=== PATIENT | female | born 1950 | race Caucasian/White ===

== ENCOUNTER 2020-07-17 14:45 | Inpatient (IN) ==
[2020-07-17] MEDS ORDERED: *HR* HYDROcodone/Acet 5/325 mg TABLET PO PRN (16:15)
[2020-07-17] MEDS ORDERED: polyethylene glycoL 3350 17 GM POWD.PACK PO PRN (16:15)
[2020-07-17] MEDS ORDERED: *HR* HYDROcodone/Acet 10/325 mg TABLET PO PRN (16:18)
[2020-07-17] MEDS: carvediloL 25 MG TABLET PO SCH (17:42)
[2020-07-17] MEDS: Insulin LISPRO 300 UNITS/3 ML VIAL SUBQ SCH (17:42)
[2020-07-17] MEDS: hydrALAZINE 25 MG TABLET PO SCH (17:42)
[2020-07-17] MEDS: Pregabalin 75 MG CAPSULE PO SCH (21:18)
[2020-07-17] MEDS: Insulin DETEMIR 100 UNIT/ML per UNIT SUBQ SCH (21:19)
[2020-07-17] MEDS: Meropenem 1,000 MG in 0.9 % Sodium Chloride Mini Bag 100 ML IVPB SCH (21:22)
[2020-07-18] MEDS: hydrALAZINE 25 MG TABLET PO SCH ×3 (00:07→17:08)
[2020-07-18 04:38] LABS: Basophils % 0.6 %; Eosinophils # 0.6 K/mcL (0.0-0.6); Eosinophils % 7.8 %; Hematocrit 26.2 % (35.3-44.9); Hemoglobin 8.3 g/dL (11.5-15.4); Immature Granulocytes % 0.4 % (0-4); Lymphocytes % 28.7 %; Mean Corpuscular HGB Conc 31.7 g/dL (31.6-35.5); Mean Corpuscular Hemoglobin 27.2 pg (28.0-33.3); Mean Corpuscular Volume 85.9 fL (83.0-100.0); Mean Platelet Volume 9.4 fL (9.4-12.4); Monocytes # 0.6 K/mcL (0.0-1.3); Neutrophils # 3.8 K/mcL (1.6-8.9); Platelet Count 256 K/mcL (140-400); Red Blood Count 3.05 M/mcL (3.82-4.97); Red Cell Distribution Width 16.2 % (11.5-14.5); Segmented Neutrophils % 53.5 %
[2020-07-18 04:58] LABS: Calcium 8.4 mg/dL (8.6-10.3); Potassium 3.7 mEq/L (3.5-5.1)
[2020-07-18] MEDS: amLODIPine 5 MG TABLET PO SCH (08:12)
[2020-07-18] MEDS: carvediloL 25 MG TABLET PO SCH ×2 (08:12→17:07)
[2020-07-18] MEDS: Isosorbide MONOnitrate (24 HR) 60 MG TAB.ER.24H PO SCH (08:12)
[2020-07-18] MEDS: Aspirin Enteric Coated 81 MG Tablet PO SCH (08:12)
[2020-07-18] MEDS: Cholecalciferol (D-3) 1,000 UNIT (25MCG) TABLET PO SCH (08:12)
[2020-07-18] MEDS: cloNIDine HCL 0.1 MG TABLET PO SCH (08:13)
[2020-07-18] MEDS: Insulin LISPRO 300 UNITS/3 ML VIAL SUBQ SCH ×3 (08:13→16:57)
[2020-07-18] MEDS: Meropenem 1,000 MG in 0.9 % Sodium Chloride Mini Bag 100 ML IVPB SCH ×2 (08:14→19:59)
[2020-07-18] MEDS: Furosemide 40 MG TABLET PO SCH (08:14)
[2020-07-18] MEDS: Insulin DETEMIR 100 UNIT/ML per UNIT SUBQ SCH (08:14)
[2020-07-18] MEDS ORDERED: DAPTOmycin 500 MG VIAL IVPB SCH (17:00)
[2020-07-18] MEDS ORDERED: DAPTOmycin 500 MG in 0.9 % Sodium Chloride 100 ML IVPB SCH (19:00)
[2020-07-18] MEDS: Pregabalin 75 MG CAPSULE PO SCH (19:58)
[2020-07-18] MEDS: Insulin DETEMIR 100 UNIT/ML X5UNITS SUBQ SCH (19:58)
[2020-07-19] MEDS: hydrALAZINE 25 MG TABLET PO SCH ×3 (00:27→16:28)
[2020-07-19 05:01] LABS: Hemoglobin 8.2 g/dL (11.5-15.4); Mean Corpuscular HGB Conc 31.5 g/dL (31.6-35.5); Mean Corpuscular Hemoglobin 27.2 pg (28.0-33.3); Mean Corpuscular Volume 86.1 fL (83.0-100.0); Mean Platelet Volume 9.4 fL (9.4-12.4); Platelet Count 254 K/mcL (140-400); Red Blood Count 3.02 M/mcL (3.82-4.97); Red Cell Distribution Width 16.4 % (11.5-14.5); White Blood Count 7.1 K/mcL (4.3-11.1)
[2020-07-19 05:17] LABS: Alanine Aminotransferase 7 Units/L (7-52); Albumin 3.2 g/dL (3.5-5.7); Albumin/Globulin Ratio 1.3 (1.1-2.2); Alkaline Phosphatase 29 Units/L (34-104); Aspartate Amino Transferase 9 Units/L (13-39); BUN/Creatinine Ratio 14 (6-26); Bilirubin,Total 0.4 mg/dL (0.3-1.0); Blood Urea Nitrogen 30 mg/dL (8-23); Calcium 8.5 mg/dL (8.6-10.3); Carbon Dioxide 29 mEq/L (23-29); Chloride 103 mEq/L (98-107); Creatine Kinase 19 Units/L (30-223); Globulin 2.5 g/dL (2.4-3.5); Glucose 148 mg/dL (70-105); Magnesium 2.3 mg/dL (1.6-2.6); Osmolality,Calculated 297 (280-300); Potassium 3.7 mEq/L (3.5-5.1); Sodium 139 mEq/L (136-145); Total Protein 5.7 g/dL (6.4-8.9); eGFR For African Americans 27 (> 60); eGFR For Non-African Americans 22 (> 60)
[2020-07-19] MEDS ORDERED: *HR* Enoxaparin 30 MG/0.3 ML SYRINGE SQ SCH (06:00)
[2020-07-19] MEDS: Cholecalciferol (D-3) 1,000 UNIT (25MCG) TABLET PO SCH (08:10)
[2020-07-19] MEDS: amLODIPine 5 MG TABLET PO SCH (08:10)
[2020-07-19] MEDS: cloNIDine HCL 0.1 MG TABLET PO SCH (08:10)
[2020-07-19] MEDS: Insulin DETEMIR 100 UNIT/ML X5UNITS SUBQ SCH ×2 (08:11→20:35)
[2020-07-19] MEDS: Insulin LISPRO 300 UNITS/3 ML VIAL SUBQ SCH ×3 (08:11→16:28)
[2020-07-19] MEDS: Isosorbide MONOnitrate (24 HR) 60 MG TAB.ER.24H PO SCH (08:11)
[2020-07-19] MEDS: Furosemide 40 MG TABLET PO SCH (08:11)
[2020-07-19] MEDS: carvediloL 25 MG TABLET PO SCH ×2 (08:12→16:28)
[2020-07-19] MEDS: Meropenem 1,000 MG in 0.9 % Sodium Chloride Mini Bag 100 ML IVPB SCH ×2 (08:12→20:32)
[2020-07-19] MEDS: Aspirin Enteric Coated 81 MG Tablet PO SCH (08:12)
[2020-07-19 08:47] LABS: C-Reactive Protein < 5 mg/L (Less than 10)
[2020-07-19] MEDS: DAPTOmycin 500 MG in 0.9 % Sodium Chloride 100 ML IVPB SCH (19:35)
[2020-07-19] MEDS: Pregabalin 75 MG CAPSULE PO SCH (20:32)
[2020-07-20] MEDS: hydrALAZINE 25 MG TABLET PO SCH ×4 (00:15→23:58)
[2020-07-20] MEDS: *HR* Enoxaparin 40 MG/0.4 ML SYRINGE SQ SCH (05:25)
[2020-07-20] MEDS: Insulin DETEMIR 100 UNIT/ML X5UNITS SUBQ SCH ×2 (08:19→20:58)
[2020-07-20] MEDS: Insulin LISPRO 300 UNITS/3 ML VIAL SUBQ SCH ×3 (08:19→16:33)
[2020-07-20] MEDS: Cholecalciferol (D-3) 1,000 UNIT (25MCG) TABLET PO SCH (08:20)
[2020-07-20] MEDS: Furosemide 40 MG TABLET PO SCH (08:20)
[2020-07-20] MEDS: cloNIDine HCL 0.1 MG TABLET PO SCH (08:21)
[2020-07-20] MEDS: amLODIPine 5 MG TABLET PO SCH (08:21)
[2020-07-20] MEDS: Aspirin Enteric Coated 81 MG Tablet PO SCH (08:21)
[2020-07-20] MEDS: Isosorbide MONOnitrate (24 HR) 60 MG TAB.ER.24H PO SCH (08:21)
[2020-07-20] MEDS: carvediloL 25 MG TABLET PO SCH ×2 (08:21→16:32)
[2020-07-20] MEDS: Meropenem 1,000 MG in 0.9 % Sodium Chloride Mini Bag 100 ML IVPB SCH ×2 (08:30→20:22)
[2020-07-20] MEDS ORDERED: Bisacodyl 10 MG RECTAL SUPPOSITORY RC ONE (10:32)
[2020-07-20] MEDS: DAPTOmycin 500 MG in 0.9 % Sodium Chloride 100 ML IVPB SCH (19:30)
[2020-07-20] MEDS: Pregabalin 75 MG CAPSULE PO SCH (20:58)
[2020-07-21] MEDS: *HR* Enoxaparin 40 MG/0.4 ML SYRINGE SQ SCH (05:01)
[2020-07-21] MEDS: Meropenem 1,000 MG in 0.9 % Sodium Chloride Mini Bag 100 ML IVPB SCH ×2 (08:07→18:49)
[2020-07-21] MEDS: Insulin LISPRO 300 UNITS/3 ML VIAL SUBQ SCH ×3 (08:07→17:28)
[2020-07-21] MEDS: cloNIDine HCL 0.1 MG TABLET PO SCH (08:08)
[2020-07-21] MEDS: Aspirin Enteric Coated 81 MG Tablet PO SCH (08:08)
[2020-07-21] MEDS: carvediloL 25 MG TABLET PO SCH ×2 (08:08→17:28)
[2020-07-21] MEDS: Isosorbide MONOnitrate (24 HR) 60 MG TAB.ER.24H PO SCH (08:08)
[2020-07-21] MEDS: amLODIPine 5 MG TABLET PO SCH (08:09)
[2020-07-21] MEDS: Cholecalciferol (D-3) 1,000 UNIT (25MCG) TABLET PO SCH (08:09)
[2020-07-21] MEDS: hydrALAZINE 25 MG TABLET PO SCH ×3 (08:09→23:34)
[2020-07-21] MEDS: Furosemide 40 MG TABLET PO SCH (08:09)
[2020-07-21] MEDS: Insulin DETEMIR 100 UNIT/ML X5UNITS SUBQ SCH ×2 (08:55→23:29)
[2020-07-21] MEDS: DAPTOmycin 500 MG in 0.9 % Sodium Chloride 100 ML IVPB SCH (19:12)
[2020-07-21] MEDS: Pregabalin 75 MG CAPSULE PO SCH (23:33)
[2020-07-22] MEDS: *HR* Enoxaparin 40 MG/0.4 ML SYRINGE SQ SCH (06:16)
[2020-07-22 06:49] LABS: Basophils % 0.7 %; Eosinophils # 0.7 K/mcL (0.0-0.6); Eosinophils % 11.2 %; Hematocrit 26.5 % (35.3-44.9); Hemoglobin 8.5 g/dL (11.5-15.4); Immature Granulocytes % 0.3 % (0-4); Lymphocytes # 1.4 K/mcL (0.6-4.6); Lymphocytes % 24.1 %; Mean Corpuscular HGB Conc 32.1 g/dL (31.6-35.5); Mean Corpuscular Hemoglobin 27.3 pg (28.0-33.3); Mean Corpuscular Volume 85.2 fL (83.0-100.0); Mean Platelet Volume 9.2 fL (9.4-12.4); Monocytes # 0.7 K/mcL (0.0-1.3); Monocytes % 11.4 %; Neutrophils # 3.1 K/mcL (1.6-8.9); Platelet Count 251 K/mcL (140-400); Red Blood Count 3.11 M/mcL (3.82-4.97); Red Cell Distribution Width 16.8 % (11.5-14.5); Segmented Neutrophils % 52.3 %; White Blood Count 5.9 K/mcL (4.3-11.1)
[2020-07-22 07:01] LABS: Calcium 8.6 mg/dL (8.6-10.3)
[2020-07-22] MEDS: Insulin LISPRO 300 UNITS/3 ML VIAL SUBQ SCH ×3 (08:34→17:14)
[2020-07-22] MEDS: Meropenem 1,000 MG in 0.9 % Sodium Chloride Mini Bag 100 ML IVPB SCH ×2 (08:34→21:06)
[2020-07-22] MEDS: Cholecalciferol (D-3) 1,000 UNIT (25MCG) TABLET PO SCH (08:35)
[2020-07-22] MEDS: cloNIDine HCL 0.1 MG TABLET PO SCH (08:35)
[2020-07-22] MEDS: amLODIPine 5 MG TABLET PO SCH (08:35)
[2020-07-22] MEDS: Aspirin Enteric Coated 81 MG Tablet PO SCH (08:35)
[2020-07-22] MEDS: carvediloL 25 MG TABLET PO SCH ×2 (08:35→17:07)
[2020-07-22] MEDS: Isosorbide MONOnitrate (24 HR) 60 MG TAB.ER.24H PO SCH (08:36)
[2020-07-22] MEDS: Furosemide 40 MG TABLET PO SCH (08:36)
[2020-07-22] MEDS: hydrALAZINE 25 MG TABLET PO SCH ×2 (08:36→17:07)
[2020-07-22] MEDS: Insulin DETEMIR 100 UNIT/ML X5UNITS SUBQ SCH ×2 (08:38→20:57)
[2020-07-22] MEDS: DAPTOmycin 500 MG in 0.9 % Sodium Chloride 100 ML IVPB SCH (20:25)
[2020-07-22] MEDS: Pregabalin 75 MG CAPSULE PO SCH (20:56)
[2020-07-23] MEDS: hydrALAZINE 25 MG TABLET PO SCH ×4 (00:05→23:16)
[2020-07-23] MEDS: *HR* Enoxaparin 40 MG/0.4 ML SYRINGE SQ SCH (05:12)
[2020-07-23] MEDS: Insulin LISPRO 300 UNITS/3 ML VIAL SUBQ SCH ×3 (08:56→17:03)
[2020-07-23] MEDS: Insulin DETEMIR 100 UNIT/ML X5UNITS SUBQ SCH ×2 (08:56→20:11)
[2020-07-23] MEDS: Furosemide 40 MG TABLET PO SCH (09:10)
[2020-07-23] MEDS: amLODIPine 5 MG TABLET PO SCH (09:10)
[2020-07-23] MEDS: cloNIDine HCL 0.1 MG TABLET PO SCH (09:10)
[2020-07-23] MEDS: Cholecalciferol (D-3) 1,000 UNIT (25MCG) TABLET PO SCH (09:11)
[2020-07-23] MEDS: carvediloL 25 MG TABLET PO SCH ×2 (09:11→17:03)
[2020-07-23] MEDS: Aspirin Enteric Coated 81 MG Tablet PO SCH (09:11)
[2020-07-23] MEDS: Meropenem 1,000 MG in 0.9 % Sodium Chloride Mini Bag 100 ML IVPB SCH ×2 (09:11→20:01)
[2020-07-23] MEDS: Isosorbide MONOnitrate (24 HR) 60 MG TAB.ER.24H PO SCH (09:11)
[2020-07-23] MEDS: DAPTOmycin 500 MG in 0.9 % Sodium Chloride 100 ML IVPB SCH (18:41)
[2020-07-23] MEDS: Pregabalin 75 MG CAPSULE PO SCH (20:00)
[2020-07-24] MEDS: *HR* Enoxaparin 40 MG/0.4 ML SYRINGE SQ SCH (05:27)
[2020-07-24] MEDS: Insulin LISPRO 300 UNITS/3 ML VIAL SUBQ SCH ×3 (08:18→16:37)
[2020-07-24] MEDS: Insulin DETEMIR 100 UNIT/ML X5UNITS SUBQ SCH ×2 (08:56→20:35)
[2020-07-24] MEDS: Meropenem 1,000 MG in 0.9 % Sodium Chloride Mini Bag 100 ML IVPB SCH ×2 (08:56→20:31)
[2020-07-24] MEDS: Furosemide 40 MG TABLET PO SCH (09:05)
[2020-07-24] MEDS: hydrALAZINE 25 MG TABLET PO SCH ×2 (09:05→16:36)
[2020-07-24] MEDS: carvediloL 25 MG TABLET PO SCH ×2 (09:05→16:36)
[2020-07-24] MEDS: cloNIDine HCL 0.1 MG TABLET PO SCH (09:05)
[2020-07-24] MEDS: Cholecalciferol (D-3) 1,000 UNIT (25MCG) TABLET PO SCH (09:05)
[2020-07-24] MEDS: Aspirin Enteric Coated 81 MG Tablet PO SCH (09:05)
[2020-07-24] MEDS: Isosorbide MONOnitrate (24 HR) 60 MG TAB.ER.24H PO SCH (09:06)
[2020-07-24] MEDS: amLODIPine 5 MG TABLET PO SCH (09:06)
[2020-07-24] MEDS: DAPTOmycin 500 MG in 0.9 % Sodium Chloride 100 ML IVPB SCH (20:30)
[2020-07-24] MEDS: Pregabalin 75 MG CAPSULE PO SCH (20:31)
[2020-07-25] MEDS: hydrALAZINE 25 MG TABLET PO SCH ×3 (00:52→17:23)
[2020-07-25] MEDS: *HR* Enoxaparin 40 MG/0.4 ML SYRINGE SQ SCH (06:24)
[2020-07-25] MEDS: Insulin LISPRO 300 UNITS/3 ML VIAL SUBQ SCH ×3 (09:23→17:24)
[2020-07-25] MEDS: Insulin DETEMIR 100 UNIT/ML X5UNITS SUBQ SCH ×2 (09:35→20:41)
[2020-07-25] MEDS: Meropenem 1,000 MG in 0.9 % Sodium Chloride Mini Bag 100 ML IVPB SCH ×2 (09:36→20:44)
[2020-07-25] MEDS: amLODIPine 5 MG TABLET PO SCH (09:37)
[2020-07-25] MEDS: Furosemide 40 MG TABLET PO SCH (09:37)
[2020-07-25] MEDS: Isosorbide MONOnitrate (24 HR) 60 MG TAB.ER.24H PO SCH (09:37)
[2020-07-25] MEDS: Cholecalciferol (D-3) 1,000 UNIT (25MCG) TABLET PO SCH (09:37)
[2020-07-25] MEDS: Aspirin Enteric Coated 81 MG Tablet PO SCH (09:37)
[2020-07-25] MEDS: cloNIDine HCL 0.1 MG TABLET PO SCH (09:37)
[2020-07-25] MEDS: carvediloL 25 MG TABLET PO SCH ×2 (09:37→17:23)
[2020-07-25] MEDS: DAPTOmycin 500 MG in 0.9 % Sodium Chloride 100 ML IVPB SCH (20:43)
[2020-07-25] MEDS: Pregabalin 75 MG CAPSULE PO SCH (20:45)
[2020-07-26] MEDS: hydrALAZINE 25 MG TABLET PO SCH ×3 (00:02→16:45)
[2020-07-26 05:48] LABS: Basophils # 0.1 K/mcL (0.0-0.2); Basophils % 1.3 %; Eosinophils # 0.6 K/mcL (0.0-0.6); Eosinophils % 9.6 %; Hematocrit 28.3 % (35.3-44.9); Hemoglobin 9.1 g/dL (11.5-15.4); Immature Granulocytes % 0.3 % (0-4); Lymphocytes # 1.9 K/mcL (0.6-4.6); Lymphocytes % 30.5 %; Mean Corpuscular HGB Conc 32.2 g/dL (31.6-35.5); Mean Corpuscular Hemoglobin 27.4 pg (28.0-33.3); Mean Corpuscular Volume 85.2 fL (83.0-100.0); Mean Platelet Volume 8.9 fL (9.4-12.4); Monocytes # 0.5 K/mcL (0.0-1.3); Monocytes % 8.2 %; Neutrophils # 3.1 K/mcL (1.6-8.9); Platelet Count 274 K/mcL (140-400); Red Blood Count 3.32 M/mcL (3.82-4.97); Red Cell Distribution Width 16.5 % (11.5-14.5); Segmented Neutrophils % 50.1 %; White Blood Count 6.2 K/mcL (4.3-11.1)
[2020-07-26 06:02] LABS: Calcium 8.8 mg/dL (8.6-10.3)
[2020-07-26] MEDS: *HR* Enoxaparin 40 MG/0.4 ML SYRINGE SQ SCH (06:24)
[2020-07-26] MEDS: Insulin LISPRO 300 UNITS/3 ML VIAL SUBQ SCH ×3 (08:18→16:45)
[2020-07-26] MEDS: Furosemide 40 MG TABLET PO SCH (08:35)
[2020-07-26] MEDS: Aspirin Enteric Coated 81 MG Tablet PO SCH (08:35)
[2020-07-26] MEDS: cloNIDine HCL 0.1 MG TABLET PO SCH (08:35)
[2020-07-26] MEDS: Insulin DETEMIR 100 UNIT/ML X5UNITS SUBQ SCH ×2 (08:35→20:20)
[2020-07-26] MEDS: Isosorbide MONOnitrate (24 HR) 60 MG TAB.ER.24H PO SCH (08:35)
[2020-07-26] MEDS: carvediloL 25 MG TABLET PO SCH ×2 (08:36→16:45)
[2020-07-26] MEDS: amLODIPine 5 MG TABLET PO SCH (08:36)
[2020-07-26] MEDS: Meropenem 1,000 MG in 0.9 % Sodium Chloride Mini Bag 100 ML IVPB SCH ×2 (08:36→21:01)
[2020-07-26] MEDS: Cholecalciferol (D-3) 1,000 UNIT (25MCG) TABLET PO SCH (08:36)
[2020-07-26] MEDS: Nystatin POWDER 30 GM BOTTLE TP SCH (20:19)
[2020-07-26] MEDS: Pregabalin 75 MG CAPSULE PO SCH (20:19)
[2020-07-26] MEDS: DAPTOmycin 500 MG in 0.9 % Sodium Chloride 100 ML IVPB SCH (20:19)
[2020-07-27] MEDS: hydrALAZINE 25 MG TABLET PO SCH ×4 (00:06→23:59)
[2020-07-27] MEDS: *HR* Enoxaparin 40 MG/0.4 ML SYRINGE SQ SCH (05:06)
[2020-07-27 05:32] LABS: Basophils # 0.1 K/mcL (0.0-0.2); Basophils % 0.8 %; Eosinophils # 0.5 K/mcL (0.0-0.6); Eosinophils % 8.9 %; Hematocrit 26.4 % (35.3-44.9); Hemoglobin 8.6 g/dL (11.5-15.4); Immature Granulocytes % 0.2 % (0-4); Lymphocytes # 1.7 K/mcL (0.6-4.6); Lymphocytes % 27.6 %; Mean Corpuscular HGB Conc 32.6 g/dL (31.6-35.5); Mean Corpuscular Hemoglobin 27.8 pg (28.0-33.3); Mean Corpuscular Volume 85.4 fL (83.0-100.0); Mean Platelet Volume 8.2 fL (9.4-12.4); Monocytes # 0.5 K/mcL (0.0-1.3); Monocytes % 8.4 %; Neutrophils # 3.3 K/mcL (1.6-8.9); Platelet Count 238 K/mcL (140-400); Red Blood Count 3.09 M/mcL (3.82-4.97); Red Cell Distribution Width 16.5 % (11.5-14.5); Segmented Neutrophils % 54.1 %; White Blood Count 6.1 K/mcL (4.3-11.1)
[2020-07-27 05:48] LABS: BUN/Creatinine Ratio 22 (6-26); Blood Urea Nitrogen 44 mg/dL (8-23); Calcium 8.7 mg/dL (8.6-10.3); Carbon Dioxide 26 mEq/L (23-29); Chloride 105 mEq/L (98-107); Glucose 83 mg/dL (70-105); Osmolality,Calculated 300 (280-300); Sodium 140 mEq/L (136-145); eGFR For African Americans 30 (> 60); eGFR For Non-African Americans 24 (> 60)
[2020-07-27] MEDS: Insulin LISPRO 300 UNITS/3 ML VIAL SUBQ SCH ×3 (08:30→17:26)
[2020-07-27] MEDS: carvediloL 25 MG TABLET PO SCH ×2 (09:32→17:32)
[2020-07-27] MEDS: amLODIPine 5 MG TABLET PO SCH (09:32)
[2020-07-27] MEDS: Aspirin Enteric Coated 81 MG Tablet PO SCH (09:32)
[2020-07-27] MEDS: Cholecalciferol (D-3) 1,000 UNIT (25MCG) TABLET PO SCH (09:32)
[2020-07-27] MEDS: Furosemide 40 MG TABLET PO SCH (09:32)
[2020-07-27] MEDS: Insulin DETEMIR 100 UNIT/ML X5UNITS SUBQ SCH ×2 (09:33→21:17)
[2020-07-27] MEDS: Isosorbide MONOnitrate (24 HR) 60 MG TAB.ER.24H PO SCH (09:33)
[2020-07-27] MEDS: Meropenem 1,000 MG in 0.9 % Sodium Chloride Mini Bag 100 ML IVPB SCH ×2 (09:33→21:12)
[2020-07-27] MEDS: cloNIDine HCL 0.1 MG TABLET PO SCH (09:33)
[2020-07-27] MEDS: Nystatin POWDER 30 GM BOTTLE TP SCH ×2 (09:41→21:19)
[2020-07-27 10:31] LABS: C-Reactive Protein < 5 mg/L (Less than 10)
[2020-07-27] MEDS: DAPTOmycin 500 MG in 0.9 % Sodium Chloride 100 ML IVPB SCH (18:27)
[2020-07-27] MEDS: Pregabalin 75 MG CAPSULE PO SCH (21:17)
[2020-07-28] MEDS: *HR* Enoxaparin 40 MG/0.4 ML SYRINGE SQ SCH (04:49)
[2020-07-28 05:27] LABS: Basophils # 0.1 K/mcL (0.0-0.2); Basophils % 0.9 %; Eosinophils # 0.5 K/mcL (0.0-0.6); Eosinophils % 9.3 %; Hematocrit 25.4 % (35.3-44.9); Hemoglobin 8.1 g/dL (11.5-15.4); Immature Granulocytes % 0.4 % (0-4); Lymphocytes # 1.7 K/mcL (0.6-4.6); Lymphocytes % 29.6 %; Mean Corpuscular HGB Conc 31.9 g/dL (31.6-35.5); Mean Corpuscular Hemoglobin 27.4 pg (28.0-33.3); Mean Corpuscular Volume 85.8 fL (83.0-100.0); Mean Platelet Volume 9.2 fL (9.4-12.4); Monocytes # 0.5 K/mcL (0.0-1.3); Monocytes % 9.3 %; Neutrophils # 2.9 K/mcL (1.6-8.9); Platelet Count 241 K/mcL (140-400); Red Blood Count 2.96 M/mcL (3.82-4.97); Red Cell Distribution Width 16.4 % (11.5-14.5); Segmented Neutrophils % 50.5 %; White Blood Count 5.7 K/mcL (4.3-11.1)
[2020-07-28 05:44] LABS: Calcium 8.7 mg/dL (8.6-10.3); Potassium 3.8 mEq/L (3.5-5.1)
[2020-07-28] MEDS: Insulin LISPRO 300 UNITS/3 ML VIAL SUBQ SCH ×3 (07:36→16:54)
[2020-07-28] MEDS: Insulin DETEMIR 100 UNIT/ML X5UNITS SUBQ SCH ×2 (08:54→19:44)
[2020-07-28] MEDS: Meropenem 1,000 MG in 0.9 % Sodium Chloride Mini Bag 100 ML IVPB SCH ×2 (08:54→19:30)
[2020-07-28] MEDS: Cholecalciferol (D-3) 1,000 UNIT (25MCG) TABLET PO SCH (08:55)
[2020-07-28] MEDS: Aspirin Enteric Coated 81 MG Tablet PO SCH (08:55)
[2020-07-28] MEDS: amLODIPine 5 MG TABLET PO SCH (08:55)
[2020-07-28] MEDS: carvediloL 25 MG TABLET PO SCH ×2 (08:55→17:03)
[2020-07-28] MEDS: Isosorbide MONOnitrate (24 HR) 60 MG TAB.ER.24H PO SCH (08:55)
[2020-07-28] MEDS: hydrALAZINE 25 MG TABLET PO SCH ×2 (08:55→17:03)
[2020-07-28] MEDS: Furosemide 40 MG TABLET PO SCH (08:55)
[2020-07-28] MEDS: cloNIDine HCL 0.1 MG TABLET PO SCH (08:55)
[2020-07-28] MEDS: Nystatin POWDER 30 GM BOTTLE TP SCH ×2 (08:56→19:48)
[2020-07-28] MEDS: Pregabalin 75 MG CAPSULE PO SCH (19:44)
[2020-07-28] MEDS: DAPTOmycin 500 MG in 0.9 % Sodium Chloride 100 ML IVPB SCH (20:10)
[2020-07-29] MEDS: hydrALAZINE 25 MG TABLET PO SCH ×3 (00:08→17:15)
[2020-07-29] MEDS: *HR* Enoxaparin 40 MG/0.4 ML SYRINGE SQ SCH (05:15)
[2020-07-29] MEDS: Insulin LISPRO 300 UNITS/3 ML VIAL SUBQ SCH ×3 (07:39→17:11)
[2020-07-29] MEDS: Insulin DETEMIR 100 UNIT/ML X5UNITS SUBQ SCH ×2 (08:59→20:23)
[2020-07-29] MEDS: Meropenem 1,000 MG in 0.9 % Sodium Chloride Mini Bag 100 ML IVPB SCH ×2 (09:20→20:40)
[2020-07-29] MEDS: carvediloL 25 MG TABLET PO SCH ×2 (09:21→17:15)
[2020-07-29] MEDS: Aspirin Enteric Coated 81 MG Tablet PO SCH (09:21)
[2020-07-29] MEDS: Isosorbide MONOnitrate (24 HR) 60 MG TAB.ER.24H PO SCH (09:21)
[2020-07-29] MEDS: cloNIDine HCL 0.1 MG TABLET PO SCH (09:21)
[2020-07-29] MEDS: Cholecalciferol (D-3) 1,000 UNIT (25MCG) TABLET PO SCH (09:21)
[2020-07-29] MEDS: amLODIPine 5 MG TABLET PO SCH (09:22)
[2020-07-29] MEDS: Furosemide 40 MG TABLET PO SCH (09:22)
[2020-07-29] MEDS: Nystatin POWDER 30 GM BOTTLE TP SCH ×2 (09:22→20:45)
[2020-07-29] MEDS: DAPTOmycin 500 MG in 0.9 % Sodium Chloride 100 ML IVPB SCH (17:13)
[2020-07-29] MEDS: Pregabalin 75 MG CAPSULE PO SCH (20:41)
[2020-07-30] MEDS: hydrALAZINE 25 MG TABLET PO SCH ×4 (00:21→23:55)
[2020-07-30] MEDS: *HR* Enoxaparin 40 MG/0.4 ML SYRINGE SQ SCH (06:18)
[2020-07-30] MEDS: Insulin LISPRO 300 UNITS/3 ML VIAL SUBQ SCH ×3 (07:51→18:09)
[2020-07-30] MEDS: Meropenem 1,000 MG in 0.9 % Sodium Chloride Mini Bag 100 ML IVPB SCH ×2 (08:53→21:01)
[2020-07-30 10:21] LABS: Bilirubin,Urine Negative (Negative); Blood,Urine Trace-lysed (Negative); Clarity,Urine Clear (Clear); Color,Urine Yellow (Yellow); Glucose,Urine (UA) Normal (Normal); Ketones,Urine Negative (Negative); Leukocyte Esterase,Urine Negative (Negative); Nitrite,Urine Negative (Negative); Protein,Urine 100 mg/dL (Neg-Trace); Urobilinogen,Urine Normal (Normal)
[2020-07-30 10:42] LABS: Squamous Epithelial Cell,Urine Few per hpf (None-Few); WBC,Urine 0-3 per hpf (0-3)
[2020-07-30] MEDS: Insulin DETEMIR 100 UNIT/ML X5UNITS SUBQ SCH ×2 (11:45→21:00)
[2020-07-30] MEDS: cloNIDine HCL 0.1 MG TABLET PO SCH (11:46)
[2020-07-30] MEDS: Aspirin Enteric Coated 81 MG Tablet PO SCH (11:47)
[2020-07-30] MEDS: Cholecalciferol (D-3) 1,000 UNIT (25MCG) TABLET PO SCH (11:47)
[2020-07-30] MEDS: amLODIPine 5 MG TABLET PO SCH (11:47)
[2020-07-30] MEDS: Furosemide 40 MG TABLET PO SCH (11:48)
[2020-07-30] MEDS: carvediloL 25 MG TABLET PO SCH ×2 (11:48→18:10)
[2020-07-30] MEDS: Isosorbide MONOnitrate (24 HR) 60 MG TAB.ER.24H PO SCH (11:48)
[2020-07-30] MEDS: Nystatin POWDER 30 GM BOTTLE TP SCH ×2 (11:55→21:02)
[2020-07-30 12:08] LABS: Hematocrit 26.4 % (35.3-44.9); Hemoglobin 8.6 g/dL (11.5-15.4); Mean Corpuscular HGB Conc 32.6 g/dL (31.6-35.5); Mean Corpuscular Hemoglobin 27.9 pg (28.0-33.3); Mean Corpuscular Volume 85.7 fL (83.0-100.0); Mean Platelet Volume 9.2 fL (9.4-12.4); Platelet Count 254 K/mcL (140-400); Red Blood Count 3.08 M/mcL (3.82-4.97); Red Cell Distribution Width 16.6 % (11.5-14.5); White Blood Count 6.1 K/mcL (4.3-11.1)
[2020-07-30 12:28] LABS: Albumin 3.2 g/dL (3.5-5.7); Albumin/Globulin Ratio 1.1 (1.1-2.2); Bilirubin,Total 0.5 mg/dL (0.3-1.0); Calcium 9.1 mg/dL (8.6-10.3); Magnesium 2.2 mg/dL (1.6-2.6); Potassium 3.9 mEq/L (3.5-5.1); Total Protein 6.2 g/dL (6.4-8.9)
[2020-07-30] MEDS: DAPTOmycin 500 MG in 0.9 % Sodium Chloride 100 ML IVPB SCH (18:10)
[2020-07-30] MEDS: Pregabalin 75 MG CAPSULE PO SCH (21:02)
[2020-07-30 21:48] LABS: Adenovirus Not Detected (Not Detect); Coronavirus 229E Not Detected (Not Detect); Coronavirus HKU1 Not Detected (Not Detect); Coronavirus NL63 Not Detected (Not Detect)
[2020-07-30 21:49] LABS: Bordetella Pertussis Not Detected (Not Detect); Chlamydophila pneumoniae Not Detected (Not Detect); Coronavirus OC43 Not Detected (Not Detect); Human Metapneumovirus Not Detected (Not Detect); Human Rhinovirus/Enterovirus Not Detected (Not Detect); Influenza A Subtype 2009 H1 Not Detected (Not Detect); Influenza B Not Detected (Not Detect); Mycoplasma pneumoniae Not Detected (Not Detect); Parainfluenza Virus 1 Not Detected (Not Detect); Parainfluenza Virus 2 Not Detected (Not Detect); Parainfluenza Virus 3 Not Detected (Not Detect); Parainfluenza Virus 4 Not Detected (Not Detect); Respiratory Syncytial Virus Not Detected (Not Detect); SARS-CoV-2 Not Detected (Not Detect)
[2020-07-31] MEDS: *HR* Enoxaparin 40 MG/0.4 ML SYRINGE SQ SCH (06:17)
[2020-07-31] MEDS: Insulin LISPRO 300 UNITS/3 ML VIAL SUBQ SCH ×3 (08:56→16:48)
[2020-07-31] MEDS: Nystatin POWDER 30 GM BOTTLE TP SCH ×2 (09:15→19:59)
[2020-07-31] MEDS: hydrALAZINE 25 MG TABLET PO SCH ×3 (09:16→23:35)
[2020-07-31] MEDS: Meropenem 1,000 MG in 0.9 % Sodium Chloride Mini Bag 100 ML IVPB SCH ×2 (09:16→19:59)
[2020-07-31] MEDS: carvediloL 25 MG TABLET PO SCH ×2 (09:16→16:50)
[2020-07-31] MEDS: Aspirin Enteric Coated 81 MG Tablet PO SCH (09:16)
[2020-07-31] MEDS: Isosorbide MONOnitrate (24 HR) 60 MG TAB.ER.24H PO SCH (09:16)
[2020-07-31] MEDS: Cholecalciferol (D-3) 1,000 UNIT (25MCG) TABLET PO SCH (09:16)
[2020-07-31] MEDS: Insulin DETEMIR 100 UNIT/ML X5UNITS SUBQ SCH ×2 (09:16→20:39)
[2020-07-31] MEDS: Furosemide 40 MG TABLET PO SCH (09:16)
[2020-07-31] MEDS: cloNIDine HCL 0.1 MG TABLET PO SCH (09:16)
[2020-07-31] MEDS: amLODIPine 5 MG TABLET PO SCH (09:16)
[2020-07-31] MEDS: DAPTOmycin 500 MG in 0.9 % Sodium Chloride 100 ML IVPB SCH (18:08)
[2020-07-31] MEDS: Pregabalin 75 MG CAPSULE PO SCH (19:59)
[2020-08-01] MEDS: *HR* Enoxaparin 40 MG/0.4 ML SYRINGE SQ SCH (05:35)
[2020-08-01] MEDS: Insulin LISPRO 300 UNITS/3 ML VIAL SUBQ SCH ×3 (08:10→16:21)
[2020-08-01] MEDS: Aspirin Enteric Coated 81 MG Tablet PO SCH (08:38)
[2020-08-01] MEDS: Furosemide 40 MG TABLET PO SCH (08:38)
[2020-08-01] MEDS: Isosorbide MONOnitrate (24 HR) 60 MG TAB.ER.24H PO SCH (08:38)
[2020-08-01] MEDS: hydrALAZINE 25 MG TABLET PO SCH ×2 (08:38→17:10)
[2020-08-01] MEDS: Cholecalciferol (D-3) 1,000 UNIT (25MCG) TABLET PO SCH (08:38)
[2020-08-01] MEDS: cloNIDine HCL 0.1 MG TABLET PO SCH (08:38)
[2020-08-01] MEDS: amLODIPine 5 MG TABLET PO SCH (08:38)
[2020-08-01] MEDS: Meropenem 1,000 MG in 0.9 % Sodium Chloride Mini Bag 100 ML IVPB SCH ×2 (08:39→20:24)
[2020-08-01] MEDS: Nystatin POWDER 30 GM BOTTLE TP SCH ×2 (08:39→20:27)
[2020-08-01] MEDS: carvediloL 25 MG TABLET PO SCH ×2 (08:39→17:10)
[2020-08-01] MEDS: Insulin DETEMIR 100 UNIT/ML X5UNITS SUBQ SCH ×2 (08:39→20:48)
[2020-08-01] MEDS: Sennosides 8.6 MG TABLET PO SCH ×2 (12:09→20:48)
[2020-08-01] MEDS: DAPTOmycin 500 MG in 0.9 % Sodium Chloride 100 ML IVPB SCH (18:25)
[2020-08-02] MEDS: hydrALAZINE 25 MG TABLET PO SCH ×4 (00:01→23:46)
[2020-08-02] MEDS: *HR* Enoxaparin 40 MG/0.4 ML SYRINGE SQ SCH (06:42)
[2020-08-02 07:18] LABS: Basophils # 0.1 K/mcL (0.0-0.2); Basophils % 0.8 %; Eosinophils # 0.7 K/mcL (0.0-0.6); Eosinophils % 9.5 %; Hematocrit 26.9 % (35.3-44.9); Hemoglobin 8.7 g/dL (11.5-15.4); Immature Granulocytes % 0.4 % (0-4); Lymphocytes % 13.4 %; Mean Corpuscular HGB Conc 32.3 g/dL (31.6-35.5); Mean Corpuscular Hemoglobin 27.4 pg (28.0-33.3); Mean Corpuscular Volume 84.6 fL (83.0-100.0); Mean Platelet Volume 9.3 fL (9.4-12.4); Monocytes # 0.6 K/mcL (0.0-1.3); Monocytes % 8.7 %; Neutrophils # 4.9 K/mcL (1.6-8.9); Platelet Count 245 K/mcL (140-400); Red Blood Count 3.18 M/mcL (3.82-4.97); Red Cell Distribution Width 15.9 % (11.5-14.5); Segmented Neutrophils % 67.2 %; White Blood Count 7.3 K/mcL (4.3-11.1)
[2020-08-02 07:31] LABS: Albumin 3.1 g/dL (3.5-5.7); BUN/Creatinine Ratio 25 (6-26); Bilirubin,Total 0.6 mg/dL (0.3-1.0); Blood Urea Nitrogen 45 mg/dL (8-23); Calcium 9.2 mg/dL (8.6-10.3); Creatine Kinase 18 Units/L (30-223); Magnesium 1.9 mg/dL (1.6-2.6); Potassium 3.4 mEq/L (3.5-5.1); Total Protein 6.1 g/dL (6.4-8.9); eGFR For African Americans 34 (> 60); eGFR For Non-African Americans 28 (> 60)
[2020-08-02] MEDS: Insulin LISPRO 300 UNITS/3 ML VIAL SUBQ SCH ×3 (07:34→17:46)
[2020-08-02] MEDS: cloNIDine HCL 0.1 MG TABLET PO SCH (08:33)
[2020-08-02] MEDS: Furosemide 40 MG TABLET PO SCH (08:36)
[2020-08-02] MEDS: Isosorbide MONOnitrate (24 HR) 60 MG TAB.ER.24H PO SCH (08:36)
[2020-08-02] MEDS: carvediloL 25 MG TABLET PO SCH ×2 (08:36→18:00)
[2020-08-02] MEDS: Aspirin Enteric Coated 81 MG Tablet PO SCH (08:36)
[2020-08-02] MEDS: Sennosides 8.6 MG TABLET PO SCH ×2 (08:37→21:03)
[2020-08-02] MEDS: amLODIPine 5 MG TABLET PO SCH (08:37)
[2020-08-02] MEDS: Cholecalciferol (D-3) 1,000 UNIT (25MCG) TABLET PO SCH (08:37)
[2020-08-02] MEDS: Meropenem 1,000 MG in 0.9 % Sodium Chloride Mini Bag 100 ML IVPB SCH ×2 (08:37→21:00)
[2020-08-02] MEDS: Insulin DETEMIR 100 UNIT/ML X5UNITS SUBQ SCH ×2 (08:38→22:31)
[2020-08-02] MEDS: Nystatin POWDER 30 GM BOTTLE TP SCH ×2 (08:40→21:03)
[2020-08-02] MEDS ORDERED: Ondansetron ODT 4 MG TAB.RAPDIS SL PRN (09:54)
[2020-08-02 13:43] LABS: C-Reactive Protein 79 mg/L (Less than 10)
[2020-08-02] MEDS: DAPTOmycin 500 MG in 0.9 % Sodium Chloride 100 ML IVPB SCH (18:00)
[2020-08-03] MEDS: *HR* Enoxaparin 40 MG/0.4 ML SYRINGE SQ SCH (05:14)
[2020-08-03] MEDS: Insulin LISPRO 300 UNITS/3 ML VIAL SUBQ SCH ×3 (08:19→17:17)
[2020-08-03] MEDS: Sennosides 8.6 MG TABLET PO SCH ×2 (09:23→19:52)
[2020-08-03] MEDS: Furosemide 40 MG TABLET PO SCH (09:23)
[2020-08-03] MEDS: Aspirin Enteric Coated 81 MG Tablet PO SCH (09:23)
[2020-08-03] MEDS: Cholecalciferol (D-3) 1,000 UNIT (25MCG) TABLET PO SCH (09:23)
[2020-08-03] MEDS: Isosorbide MONOnitrate (24 HR) 60 MG TAB.ER.24H PO SCH (09:23)
[2020-08-03] MEDS: carvediloL 25 MG TABLET PO SCH ×2 (09:23→18:03)
[2020-08-03] MEDS: cloNIDine HCL 0.1 MG TABLET PO SCH (09:23)
[2020-08-03] MEDS: amLODIPine 5 MG TABLET PO SCH (09:23)
[2020-08-03] MEDS: hydrALAZINE 25 MG TABLET PO SCH ×3 (09:23→23:57)
[2020-08-03] MEDS: Meropenem 1,000 MG in 0.9 % Sodium Chloride Mini Bag 100 ML IVPB SCH ×2 (09:24→19:53)
[2020-08-03] MEDS: Insulin DETEMIR 100 UNIT/ML X5UNITS SUBQ SCH ×2 (09:44→20:11)
[2020-08-03] MEDS: Nystatin POWDER 30 GM BOTTLE TP SCH ×2 (09:45→19:55)
[2020-08-03] MEDS: DAPTOmycin 500 MG in 0.9 % Sodium Chloride 100 ML IVPB SCH (18:03)
[2020-08-04] MEDS: *HR* Enoxaparin 40 MG/0.4 ML SYRINGE SQ SCH (05:01)
[2020-08-04] MEDS: Insulin DETEMIR 100 UNIT/ML X5UNITS SUBQ SCH ×2 (08:38→21:17)
[2020-08-04] MEDS: Insulin LISPRO 300 UNITS/3 ML VIAL SUBQ SCH ×3 (09:21→17:05)
[2020-08-04] MEDS: Furosemide 40 MG TABLET PO SCH (09:36)
[2020-08-04] MEDS: Aspirin Enteric Coated 81 MG Tablet PO SCH (09:36)
[2020-08-04] MEDS: Nystatin POWDER 30 GM BOTTLE TP SCH ×2 (09:36→21:06)
[2020-08-04] MEDS: amLODIPine 5 MG TABLET PO SCH (09:36)
[2020-08-04] MEDS: hydrALAZINE 25 MG TABLET PO SCH ×3 (09:36→23:30)
[2020-08-04] MEDS: Isosorbide MONOnitrate (24 HR) 60 MG TAB.ER.24H PO SCH (09:36)
[2020-08-04] MEDS: cloNIDine HCL 0.1 MG TABLET PO SCH (09:36)
[2020-08-04] MEDS: carvediloL 25 MG TABLET PO SCH ×2 (09:36→17:06)
[2020-08-04] MEDS: Meropenem 1,000 MG in 0.9 % Sodium Chloride Mini Bag 100 ML IVPB SCH ×2 (09:37→21:04)
[2020-08-04] MEDS: Cholecalciferol (D-3) 1,000 UNIT (25MCG) TABLET PO SCH (09:37)
[2020-08-04] MEDS: Sennosides 8.6 MG TABLET PO SCH ×2 (09:37→21:06)
[2020-08-04] MEDS ORDERED: *HR* Dextrose 50 % in Water (Vial) 50 ML VIAL IVP PRN (13:30)
[2020-08-04] MEDS ORDERED: D5% in Water 1,000 ML IVC PRN (13:30)
[2020-08-04] MEDS ORDERED: Dextrose Gel 15 GM/37.5 ML TUBE PO PRN ×2 (13:30)
[2020-08-04] MEDS: Pantoprazole 40 MG VIAL IVP SCH (17:05)
[2020-08-04] MEDS: DAPTOmycin 500 MG in 0.9 % Sodium Chloride 100 ML IVPB SCH (17:53)
[2020-08-05] MEDS: Pantoprazole 40 MG VIAL IVP SCH (05:30)
[2020-08-05] MEDS: *HR* Enoxaparin 40 MG/0.4 ML SYRINGE SQ SCH (05:30)
[2020-08-05] MEDS ORDERED: Ondansetron 4 MG/2 ML VIAL IVP PRN (05:32)
[2020-08-05 06:07] LABS: Hemoglobin 8.6 g/dL (11.5-15.4); Mean Corpuscular HGB Conc 33.1 g/dL (31.6-35.5); Mean Corpuscular Hemoglobin 27.3 pg (28.0-33.3); Mean Corpuscular Volume 82.5 fL (83.0-100.0); Mean Platelet Volume 9.3 fL (9.4-12.4); Platelet Count 267 K/mcL (140-400); Red Blood Count 3.15 M/mcL (3.82-4.97); Red Cell Distribution Width 15.3 % (11.5-14.5); White Blood Count 10.1 K/mcL (4.3-11.1)
[2020-08-05] MEDS: cloNIDine HCL 0.1 MG TABLET PO SCH (09:00)
[2020-08-05] MEDS: carvediloL 25 MG TABLET PO SCH ×2 (09:00→16:56)
[2020-08-05] MEDS: Cholecalciferol (D-3) 1,000 UNIT (25MCG) TABLET PO SCH (09:00)
[2020-08-05] MEDS: Sennosides 8.6 MG TABLET PO SCH ×2 (09:00→20:26)
[2020-08-05] MEDS: Furosemide 40 MG TABLET PO SCH (09:00)
[2020-08-05] MEDS: hydrALAZINE 25 MG TABLET PO SCH ×3 (09:00→23:38)
[2020-08-05] MEDS: amLODIPine 5 MG TABLET PO SCH (09:01)
[2020-08-05] MEDS: Aspirin Enteric Coated 81 MG Tablet PO SCH (09:01)
[2020-08-05] MEDS: Isosorbide MONOnitrate (24 HR) 60 MG TAB.ER.24H PO SCH (09:01)
[2020-08-05] MEDS: Meropenem 1,000 MG in 0.9 % Sodium Chloride Mini Bag 100 ML IVPB SCH ×2 (09:02→21:10)
[2020-08-05] MEDS: Insulin DETEMIR 100 UNIT/ML X5UNITS SUBQ SCH ×2 (09:02→20:35)
[2020-08-05] MEDS: Insulin LISPRO 300 UNITS/3 ML VIAL SUBQ SCH ×3 (09:04→16:56)
[2020-08-05] MEDS: Nystatin POWDER 30 GM BOTTLE TP SCH ×2 (09:06→20:25)
[2020-08-05] MEDS: DAPTOmycin 500 MG in 0.9 % Sodium Chloride 100 ML IVPB SCH (20:26)
[2020-08-05] MEDS: Famotidine 20 MG TABLET PO SCH (20:26)
[2020-08-06] MEDS: *HR* Enoxaparin 40 MG/0.4 ML SYRINGE SQ SCH (05:18)
[2020-08-06] MEDS: Insulin LISPRO 300 UNITS/3 ML VIAL SUBQ SCH ×3 (07:37→18:18)
[2020-08-06] MEDS: Furosemide 40 MG TABLET PO SCH (08:34)
[2020-08-06] MEDS: carvediloL 25 MG TABLET PO SCH ×2 (08:34→18:18)
[2020-08-06] MEDS: Aspirin Enteric Coated 81 MG Tablet PO SCH (08:34)
[2020-08-06] MEDS: Cholecalciferol (D-3) 1,000 UNIT (25MCG) TABLET PO SCH (08:34)
[2020-08-06] MEDS: Isosorbide MONOnitrate (24 HR) 60 MG TAB.ER.24H PO SCH (08:34)
[2020-08-06] MEDS: cloNIDine HCL 0.1 MG TABLET PO SCH (08:34)
[2020-08-06] MEDS: Sennosides 8.6 MG TABLET PO SCH ×2 (08:34→20:45)
[2020-08-06] MEDS: hydrALAZINE 25 MG TABLET PO SCH ×3 (08:35→23:30)
[2020-08-06] MEDS: Famotidine 20 MG TABLET PO SCH ×2 (08:35→20:45)
[2020-08-06] MEDS: Meropenem 1,000 MG in 0.9 % Sodium Chloride Mini Bag 100 ML IVPB SCH ×2 (08:35→20:48)
[2020-08-06] MEDS: amLODIPine 5 MG TABLET PO SCH (08:35)
[2020-08-06] MEDS: Insulin DETEMIR 100 UNIT/ML X5UNITS SUBQ SCH ×2 (08:44→20:40)
[2020-08-06] MEDS: Nystatin POWDER 30 GM BOTTLE TP SCH ×2 (08:44→20:47)
[2020-08-06] MEDS: DAPTOmycin 500 MG in 0.9 % Sodium Chloride 100 ML IVPB SCH (20:46)
[2020-08-07] MEDS: *HR* Enoxaparin 40 MG/0.4 ML SYRINGE SQ SCH (05:55)
[2020-08-07 06:24] LABS: Hematocrit 25.6 % (35.3-44.9); Hemoglobin 8.3 g/dL (11.5-15.4); Mean Corpuscular HGB Conc 32.4 g/dL (31.6-35.5); Mean Corpuscular Hemoglobin 26.9 pg (28.0-33.3); Mean Corpuscular Volume 83.1 fL (83.0-100.0); Mean Platelet Volume 9.2 fL (9.4-12.4); Platelet Count 306 K/mcL (140-400); Red Blood Count 3.08 M/mcL (3.82-4.97); White Blood Count 7.3 K/mcL (4.3-11.1)
[2020-08-07 06:38] LABS: Calcium 9.1 mg/dL (8.6-10.3); Potassium 3.5 mEq/L (3.5-5.1)
[2020-08-07] MEDS: cloNIDine HCL 0.1 MG TABLET PO SCH (09:19)
[2020-08-07] MEDS: Aspirin Enteric Coated 81 MG Tablet PO SCH (09:19)
[2020-08-07] MEDS: Famotidine 20 MG TABLET PO SCH ×2 (09:20→21:55)
[2020-08-07] MEDS: Cholecalciferol (D-3) 1,000 UNIT (25MCG) TABLET PO SCH (09:20)
[2020-08-07] MEDS: amLODIPine 5 MG TABLET PO SCH (09:20)
[2020-08-07] MEDS: Isosorbide MONOnitrate (24 HR) 60 MG TAB.ER.24H PO SCH (09:20)
[2020-08-07] MEDS: Furosemide 40 MG TABLET PO SCH (09:20)
[2020-08-07] MEDS: Sennosides 8.6 MG TABLET PO SCH ×2 (09:20→21:55)
[2020-08-07] MEDS: hydrALAZINE 25 MG TABLET PO SCH ×2 (09:20→17:16)
[2020-08-07] MEDS: carvediloL 25 MG TABLET PO SCH ×2 (09:21→17:16)
[2020-08-07] MEDS: Meropenem 1,000 MG in 0.9 % Sodium Chloride Mini Bag 100 ML IVPB SCH ×2 (09:21→18:57)
[2020-08-07] MEDS: Insulin DETEMIR 100 UNIT/ML X5UNITS SUBQ SCH ×2 (09:23→21:59)
[2020-08-07] MEDS: Insulin LISPRO 300 UNITS/3 ML VIAL SUBQ SCH ×3 (09:38→16:30)
[2020-08-07] MEDS: Nystatin POWDER 30 GM BOTTLE TP SCH ×2 (09:38→21:56)
[2020-08-07] MEDS: DAPTOmycin 500 MG in 0.9 % Sodium Chloride 100 ML IVPB SCH (18:19)
[2020-08-08] MEDS: hydrALAZINE 25 MG TABLET PO SCH ×3 (00:16→16:54)
[2020-08-08] MEDS: *HR* Enoxaparin 40 MG/0.4 ML SYRINGE SQ SCH (05:42)
[2020-08-08] MEDS: Insulin DETEMIR 100 UNIT/ML X5UNITS SUBQ SCH ×2 (08:51→20:53)
[2020-08-08] MEDS: Meropenem 1,000 MG in 0.9 % Sodium Chloride Mini Bag 100 ML IVPB SCH ×2 (08:51→20:47)
[2020-08-08] MEDS: Sennosides 8.6 MG TABLET PO SCH ×2 (08:52→20:49)
[2020-08-08] MEDS: amLODIPine 5 MG TABLET PO SCH (08:52)
[2020-08-08] MEDS: cloNIDine HCL 0.1 MG TABLET PO SCH (08:53)
[2020-08-08] MEDS: Aspirin Enteric Coated 81 MG Tablet PO SCH (08:53)
[2020-08-08] MEDS: Famotidine 20 MG TABLET PO SCH ×2 (08:53→20:49)
[2020-08-08] MEDS: Cholecalciferol (D-3) 1,000 UNIT (25MCG) TABLET PO SCH (08:53)
[2020-08-08] MEDS: Furosemide 40 MG TABLET PO SCH (08:53)
[2020-08-08] MEDS: Isosorbide MONOnitrate (24 HR) 60 MG TAB.ER.24H PO SCH (08:53)
[2020-08-08] MEDS: carvediloL 25 MG TABLET PO SCH ×2 (08:53→16:54)
[2020-08-08] MEDS: Insulin LISPRO 300 UNITS/3 ML VIAL SUBQ SCH ×3 (08:54→16:53)
[2020-08-08] MEDS: Nystatin POWDER 30 GM BOTTLE TP SCH ×2 (09:10→20:51)
[2020-08-08] MEDS: DAPTOmycin 500 MG in 0.9 % Sodium Chloride 100 ML IVPB SCH (19:32)
[2020-08-09] MEDS: hydrALAZINE 25 MG TABLET PO SCH ×2 (00:11→08:06)
[2020-08-09] MEDS: *HR* Enoxaparin 40 MG/0.4 ML SYRINGE SQ SCH (05:16)
[2020-08-09 07:32] VITALS: BP 170/67
[2020-08-09] MEDS: cloNIDine HCL 0.1 MG TABLET PO SCH (08:05)
[2020-08-09] MEDS: Aspirin Enteric Coated 81 MG Tablet PO SCH (08:05)
[2020-08-09] MEDS: Famotidine 20 MG TABLET PO SCH (08:05)
[2020-08-09] MEDS: Insulin LISPRO 300 UNITS/3 ML VIAL SUBQ SCH ×2 (08:05→12:15)
[2020-08-09] MEDS: carvediloL 25 MG TABLET PO SCH (08:06)
[2020-08-09] MEDS: amLODIPine 5 MG TABLET PO SCH (08:06)
[2020-08-09] MEDS: Isosorbide MONOnitrate (24 HR) 60 MG TAB.ER.24H PO SCH (08:06)
[2020-08-09] MEDS: Furosemide 40 MG TABLET PO SCH (08:06)
[2020-08-09] MEDS: Meropenem 1,000 MG in 0.9 % Sodium Chloride Mini Bag 100 ML IVPB SCH (08:06)
[2020-08-09] MEDS: Sennosides 8.6 MG TABLET PO SCH (08:06)
[2020-08-09] MEDS: Cholecalciferol (D-3) 1,000 UNIT (25MCG) TABLET PO SCH (08:06)
[2020-08-09] MEDS: Nystatin POWDER 30 GM BOTTLE TP SCH (08:07)
[2020-08-09] MEDS: Insulin DETEMIR 100 UNIT/ML X5UNITS SUBQ SCH (10:20)
[2020-08-10] MEDS ORDERED: Famotidine 20 MG TABLET PO SCH (09:00)
== END 2020-08-09 17:26 | DRG 637 ==
LOC: INPGRE 14:45
PROVIDERS: ADMIT Family Medicine; ATTEND Family Medicine